=== PATIENT | female | born 2000 | race Caucasian/White ===

== ENCOUNTER 2022-11-24 13:44 | Emergency (ER) | payer MEDICAID, SELFPAY ==
[2022-11-24 13:47] VITALS: BP 132/85; PULSE 96; RESP 16; TEMP 36.7; O2SAT 96; BMI 25.7
--- NOTE | 2022-11-24 13:55 | ED.UPPEXIN ---
HPI - Extremity Injury (Upper) General Time Seen by Provider: 13:55 Date Seen: 11/24/22 Chief Complaint: Extremity Pain/Injury, Upper Stated Complaint: Joint Pain Numbness in Fingers Time Seen by Provider: 11/24/22 13:54 Source: patient, RN notes reviewed and old records reviewed Mode of arrival: ambulatory Limitations: no limitations Related Data Allergies Allergy/AdvReac Type Severity Reaction Status Date / Time No Known Drug Allergies Allergy Verified 11/24/22 13:51 Exam Const: Vital Signs, click to edit/add: Vital Signs - 24 hr 11/24/22 13:47 Temperature 98.1 F Pulse Rate [Pulse Oximeter] 96 Respiratory Rate 16 Blood Pressure [Ri ght Upper Arm] 132/85 Pulse Oximetry 96 Oxygen Delivery Me thod Room Air Course Vital Signs Vital signs: Initial Vital Signs Temperature 98.1 F 11/24/22 13:47 Temperature Source Temporal Artery Scan 11/24/22 13:47 Pulse Rate 96 11/24/22 13:47 Pulse Rhythm 11/24/22 13:47 Respiratory Rate 16 11/24/22 13:47 Blood Pressure 132/85 11/24/22 13:47 Blood Pressure Mean 100 11/24/22 13:47 Blood Pressure Position Sitting 11/24/22 13:47 Pulse Oximetry 96 11/24/22 13:47 Oxygen Delivery Method 11/24/22 13:47 Vital Signs Temperature 98.1 F 11/24/22 13:47 Pulse Rate 96 11/24/22 13:47 Respiratory Rate 16 11/24/22 13:47 Blood Pressure 132/85 11/24/22 13:47 Pulse Oximetry 96 11/24/22 13:47 Oxygen Delivery Method 11/24/22 13:47 Temperature 98.1 F 11/24/22 13:47 Pulse Rate 96 11/24/22 13:47 Respiratory Rate 16 11/24/22 13:47 Blood Pressure 132/85 11/24/22 13:47 Pulse Oximetry 96 11/24/22 13:47 Oxygen Delivery Method 11/24/22 13:47
[2022-11-24 14:14] VITALS: PULSE 90
[2022-11-24 14:20] VITALS: PULSE 87; O2SAT 98
[2022-11-24 14:21] VITALS: BP 119/71; PULSE 86; O2SAT 98
[2022-11-24 14:22] VITALS: BP 119/71; PULSE 90; RESP 18; TEMP 36.6; O2SAT 98
[2022-11-24 14:30] VITALS: PULSE 92; O2SAT 98
--- NOTE | 2022-11-24 15:25 | ED.UPPEXIN ---
HPI - Extremity Injury (Upper) General Chief Complaint: Extremity Pain/Injury, Upper Stated Complaint: Joint Pain Numbness in Fingers Time Seen by Provider: 11/24/22 13:54 History of Present Illness HPI narrative: 21-year-old young woman here with significant other with complaint of bilateral wrist and forearm pain that has been going on for about a week now more noticeably. She is right-handed dominant. The left though seems to be more affected than the right. She gestures for some pain that seems to also be radiating up the inner forearm particularly on the left. Symptoms also include numbness and tingling, pain and puffiness involving her hand and fingers. As I tried to parse this out a bit more she initially indicates all fingers but with more specific questioning it does appears that it is more specifically the thumb through middle of the 4th finger; sparing the ulnar side 4th finger and the 5th fingers. 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 No trauma otherwise noted. Discomfort and puffiness seems to improve after period of elevation, presumably rest. No trauma otherwise. She does also work out and does endorse some hyper extension maneuvers with weights. No neck problems. No reproducibility with neck movement. Related Data Allergies Allergy/AdvReac Type Severity Reaction Status Date / Time No Known Drug Allergies Allergy Verified 11/24/22 13:51 Review of Systems Status of ROS: Reports: 6 or more systems reviewed and unremarkable except as noted in History and below [facility] Social History Smoking Status: Never smoker Do you use any of these nicotine containing products: None Second hand tobacco smoke exposure: No How often do you have a drink containing alcohol: never AUDIT-C Alcohol total score: 0 Non-prescribed substance use: denies use Exam Narrative: Exam Narrative: Pleasant. Carefully casually groomed. NAD. Intermittently massaging hands or wrist. Does have a tattoo on the volar surface of the left wrist. There is no appreciable swelling or erythema about the wrists or hands forearms. She has good strength generally. Able to flex and extend at all joints. Does appear to be well perfused. Nails in a nice repair. Testing of the wrist/distribution-positive for Phalen's, Tinel's, overhead reach Const: Vital Signs, click to edit/add: Vital Signs - 24 hr 11/24/22 13:47 11/24/22 14:14 11/24/22 14:22 Temperature 98.1 F 98 F Pulse Rate Pulse Rate [Pulse Oximeter] 96 90 90 Respiratory Rate 16 18 Blood Pressure Blood Pressure [Ri ght Upper Arm] 132/85 119/71 Pulse Oximetry 96 98 Oxygen Delivery Me thod Room Air Room Air 11/24/22 14:20 11/24/22 14:21 11/24/22 14:30 Temperature Pulse Rate 87 86 92 Pulse Rate [Pulse Oximeter] Respiratory Rate Blood Pressure 119/71 Blood Pressure [Ri ght Upper Arm] Pulse Oximetry 98 98 98 Oxygen Delivery Me thod Documenting provider has reviewed patient's vital signs: yes Course Vital Signs Vital signs: Initial Vital Signs Temperature 98.1 F 11/24/22 13:47 Temperature Source Temporal Artery Scan 11/24/22 13:47 Pulse Rate 96 11/24/22 13:47 Pulse Rhythm 11/24/22 13:47 Respiratory Rate 16 11/24/22 13:47 Blood Pressure 132/85 11/24/22 13:47 Blood Pressure Mean 100 11/24/22 13:47 Blood Pressure Position Sitting 11/24/22 13:47 Pulse Oximetry 96 11/24/22 13:47 Oxygen Delivery Method 11/24/22 13:47 Vital Signs Temperature 98.1 F 11/24/22 13:47 Pulse Rate 96 11/24/22 13:47 Respiratory Rate 16 11/24/22 13:47 Blood Pressure 132/85 11/24/22 13:47 Pulse Oximetry 96 11/24/22 13:47 Oxygen Delivery Method 11/24/22 13:47 Temperature 98 F 11/24/22 14:22 Pulse Rate 92 11/24/22 14:30 Respiratory Rate 18 11/24/22 14:22 Blood Pressure 119/71 11/24/22 14:22 Pulse Oximetry 98 11/24/22 14:30 Oxygen Delivery Method 11/24/22 14:22 MDM - Extremity Injury (Upper) MDM Narrative Medical decision making narrative: Really does appear to have a median nerve neuropathy consistent with carpal tunnel syndrome given her work requirements. Does not appear to be a cervical radiculopathy or any isolated traumatic event. No indication a chronic/rheumatological inflammatory disorder. Discharge Plan Discharge Clinical Impression: Carpal tunnel syndrome Patient Disposition: Home, Self-Care Condition: Stable Additional Instructions: See handout for treatment recommendations. Follow them. Alternatively I suppose you could just stop doing what seems to be most bothering; this appears to be typing. Using only speech recognition for a couple of weeks might show improvement. I know you are lifting some weights as well; more extreme extension of the wrist will likely make this worse. It would probably be good to avoid that sort of activity as well. For discomfort can take up to 800 mg of ibuprofen per dose or up to 1000 mg of acetaminophen per dose. Alternative to the ibuprofen might be up to 500 mg naproxen 2 times daily. You can also use wrist braces. My thought on wrist braces is that they are helpful to limit the stress on the wrist if you can not actually discontinue the activities that are exacerbating the issue. I believe carpal tunnel braces are available [id number] but I have also written a prescription if you want to try them out. I think around here [facility] has prescription medical supplies like that. [id number] carpal tunnel braces might be available in most pharmacies. Stand Alone Forms: [employer] Info Instructions
== END 2022-11-24 15:09 | disposition home or self-care (01) ==
LOC: ED 15:00
PROVIDERS: Emergency Provider Family Medicine
DX: G56.03 Carpal tunnel syndrome, bilateral upper limbs (principal)
CPT/HCPCS: 99283

== ENCOUNTER 2023-05-24 10:25 | Emergency (ER) | payer OTHER, SELFPAY ==
[2023-05-24 10:36] VITALS: BP 110/76; PULSE 89; RESP 16; TEMP 35.9; O2SAT 97; BMI 24.9
--- NOTE | 2023-05-24 11:44 | CRLHL7_ITS ---
For Patients: As a result of the Cures Act, medical imaging exams and procedure reports are released immediately into your electronic medical record. You may view this report before your referring provider. If you have questions, please contact your health care provider. Indication: Injury and pain. Technique: Left knee 3 views Comparison: None Findings: Bones: Alignment is normal. No fractures or bone lesions. No sign of acute injury. Joint spaces: No joint effusion. Joint spaces are well maintained. No degenerative changes. Soft tissues: Soft tissue areas inferior to the patella. No foreign body. Dictated by Hunter Quevedo MD @ 05/24/2023 2:06:47 PM (Electronically Signed)
[2023-05-24] MEDS: TETANUS/DIPHTH/PERTUSSIS 0.5 ML SYRINGE IM (11:53)
--- NOTE | 2023-05-24 12:04 | ED.NURSE ---
bacitracin, telfa, kerlix and phyllis to L knee. bacitracin and bandaid to R knee x 2
--- NOTE | 2023-05-24 12:13 | ED_ITS ---
HPI - General Adult General Date Seen: 05/24/23 Chief complaint: Extremity Pain/Injury, Lower Stated complaint: left knee laceration,rt knee pain Time Seen by Provider: 05/24/23 11:03 Source: patient Mode of arrival: ambulatory Limitations: no limitations History of Present Illness HPI narrative: patient is a 22-year-old generally healthy young woman who was on a treadmill, she had decided to stop, apparently got kind of tangled up in some free weights which were near by fell and landed on her knees. She has a laceration on the left knee in a couple of small lacerations on the right knee. She has been ambulatory although she says it is beginning to stiffen up more. Last tetanus was in 2012. General health is good, no medications. Related Data Home Medications Medication Instructions Recorded Confirmed No Known Home Medications 05/24/23 05/24/23 Allergies Allergy/AdvReac Type Severity Reaction Status Date / Time No Known Drug Allergies Allergy Verified 11/24/22 13:51 Review of Systems Status of ROS: Reports: 6 or more systems reviewed and unremarkable except as noted in History and below PFSH PFS Social History Smoking Status: Never smoker Do you use any of these nicotine containing products: None Second hand tobacco smoke exposure: No How often do you have a drink containing alcohol: never AUDIT-C Alcohol total score: 0 Non-prescribed substance use: denies use Exam Narrative: Exam Narrative: Vital signs reviewed In general, an alert, well-appearing young woman. Extremities: Examination of the left knee shows some mild bruising, she has little bit of patellar tenderness but no effusion. She has a 3 cm laceration on the medial aspect of the knee with extension into the fatty tissue. On the right knee, she does not have any bruising or tenderness. She has a tiny laceration on the anterior knee and a tiny laceration on the lateral knee, both about 0.5 cm in length. She has full range of motion bilaterally. Skin: Warm dry well perfused. Neurologic: She is alert, conversant, ambulatory. Const: Vital Signs, click to edit/add: Vital Signs - 24 hr 05/24/23 10:36 Temperature 96.7 F L Pulse Rate [Pulse Oximeter] 89 Respiratory Rate 16 Blood Pressure [Ri ght Upper Arm] 110/76 Pulse Oximetry 97 Oxygen Delivery Me thod Room Air Documenting provider has reviewed patient's vital signs: yes Course Course Hospital Course: Tetanus was updated today. Procedure note: The 3 lacerations were anesthetized, the 2 in the right knee were closed with 2 simple interrupted superficial sutures using 4-0 nylon. On the left, wound was explored without evidence of foreign body or injury to deeper structures. I placed 3 deep sutures with 4-0 Vicryl to approximate the wound edges and then a total of 8 superficial simple interrupted sutures using 4-0 nylon. She tolerated this well without immediate complication. Dressings are applied, will go ahead and use an Curtis wrap on the left just to decrease movement at the knee. Given that she has some bruising and tenderness over the [place] I did elect to do x-rays of the left knee. By my review X-rays are negative. Final radiology read is pending. Routine wound care, return for signs of infection. Ibuprofen, Tylenol, ice as needed. Suture removal 10 days in clinic. Vital Signs Vital signs: Initial Vital Signs Temperature 96.7 F L 05/24/23 10:36 Temperature Source Temporal Artery Scan 05/24/23 10:36 Pulse Rate 89 05/24/23 10:36 Respiratory Rate 16 05/24/23 10:36 Blood Pressure 110/76 05/24/23 10:36 Blood Pressure Mean 87 05/24/23 10:36 Blood Pressure Position Supine 05/24/23 10:36 Pulse Oximetry 97 05/24/23 10:36 Oxygen Delivery Method Room Air 05/24/23 10:36 Vital Signs Temperature 96.7 F L 05/24/23 10:36 Pulse Rate 89 05/24/23 10:36 Respiratory Rate 16 05/24/23 10:36 Blood Pressure 110/76 05/24/23 10:36 Pulse Oximetry 97 05/24/23 10:36 Oxygen Delivery Method Room Air 05/24/23 10:36 Temperature 96.7 F L 05/24/23 10:36 Pulse Rate 89 05/24/23 10:36 Respiratory Rate 16 05/24/23 10:36 Blood Pressure 110/76 05/24/23 10:36 Pulse Oximetry 97 05/24/23 10:36 Oxygen Delivery Method Room Air 05/24/23 10:36 Discharge Plan Discharge Clinical Impression: Knee laceration Patient Disposition: Home, Self-Care Condition: Improved Instructions: Laceration (ED) Additional Instructions: routine wound care, return for signs of infection. Suture removal in clinic in about 10 days. I would suggest keeping the Curtis wrap on for the 1st few days at least. Prescriptions: No Action No Known Home Medications Follow Up/Referrals: Provider,Not a Local [Primary Care Provider] - Stand Alone Forms: [employer] Info Instructions
== END 2023-05-24 12:37 | disposition home or self-care (01) ==
PROVIDERS: Emergency Provider Emergency Medicine
DX: S81.012A Laceration without foreign body, left knee, initial encounter (principal); S81.011A Laceration without foreign body, right knee, initial encounter; W01.10XA Fall on same level from slipping, tripping and stumbling with subsequent striking against unspecified object, initial encounter
CPT/HCPCS: 12002; 73562; 90471; 90715; 99284